=== PATIENT | male | born 1950 | race Caucasian/White ===

== ENCOUNTER 2023-12-31 13:46 | Inpatient (IN) | payer MEDICARE ==
[~2023-12-31] VITALS: Ht 195.6 cm; Wt 120.0 kg
[2023-12-31] MEDS ORDERED: ROSUVASTATIN CA10 MG PO (14:04)
[2023-12-31] MEDS ORDERED: METF500 PO (14:04)
[2023-12-31] MEDS ORDERED: OLME20 PO (14:04)
[2023-12-31] MEDS ORDERED: HYDCHL25 PO (14:05)
[2023-12-31] MEDS ORDERED: METO50ER PO (14:05)
[2023-12-31] MEDS ORDERED: Aspir 8181 MG PO (14:06)
[2023-12-31] MEDS ORDERED: THERA-D2000 UNIT PO (14:06)
[2023-12-31] MEDS ORDERED: Vitamin B Comple1 EA PO (14:06)
[2023-12-31] MEDS ORDERED: MULVITA PO (14:06)
[2023-12-31] MEDS ORDERED: COQ-10100 MG PO (14:07)
[2023-12-31] MEDS ORDERED: B-12500 MC2 PO (14:07)
[2023-12-31] MEDS ORDERED: HYDROmorphone HCl/Pf 1MG SYR IV ONE ×3 (14:25→16:20)
[2023-12-31] MEDS ORDERED: Ondansetron HCl 2 MG / ML 2ML Vial IV ONE (14:25)
[2023-12-31 17:25] LABS: BASOPHILS ABSOLUTE AUTO 0.04 K/mm3 (0.00-0.23); BASOPHILS PERCENT AUTO 0 % (0-2); EOSINOPHILS PERCENT AUTO 3 % (0-6); Hematocrit 46.5 % (37.0-53.0); Hemoglobin 15.6 g/dL (13.5-17.5); IMMATURE GRAN ABSOLUTE AUTO 0.11 K/mm3 (0.00-0.10); IMMATURE GRAN PERCENT AUTO 1 % (0-1); LYMPHOCYTES ABSOLUTE AUTO 2.44 K/mm3 (0.84-5.20); LYMPHOCYTES PERCENT AUTO 17 % (21-46); MONOCYTES ABSOLUTE AUTO 1.13 K/mm3 (0.16-1.47); MONOCYTES PERCENT AUTO 8 % (4-13); Mean Corpuscular HGB 31.1 pg (26.0-34.0); Mean Corpuscular HGB Conc 33.5 g/dL (31.5-36.5); Mean Corpuscular Volume 93 fL (80-100); Mean Platelet Volume 10.3 fL (9.1-12.4); NEUTROPHILS ABSOLUTE AUTO 10.34 K/mm3 (1.96-9.15); NEUTROPHILS PERCENT AUTO 71 % (41-73); Platelet Count 263 K/mm3 (150-400); RDW Coefficient Variation 12.7 % (11.7-14.2); RDW Standard Deviation 43.3 fL (35.1-46.3); Red Blood Cell Count 5.01 M/mm3 (4.30-5.90); White Blood Cell Count 14.56 K/mm3 (4.00-11.30)
[2023-12-31] MEDS ORDERED: Ondansetron HCl 2 MG / ML 2ML Vial IV PRN (17:35)
[2023-12-31] MEDS ORDERED: NS 1,000 ML IV SCH (17:35)
[2023-12-31 17:36] LABS: Albumin, Blood 4.2 g/dL (3.4-5.0); Albumin/Globulin Ratio 1.4 (0.8-1.8); Bilirubin, Total 0.8 mg/dL (0.1-1.0); Bun/Creatinine Ratio 16.7 (12.0-20.0); Calcium, Blood 9.4 mg/dL (8.5-10.1); Creatinine, Blood 0.84 mg/dL (0.60-1.20); Potassium, Blood 3.8 mmol/L (3.5-5.5); Total Protein, Blood 7.2 g/dL (6.4-8.2)
[2023-12-31] MEDS ORDERED: FentaNYL Citrate 50 MCG/ML 2 ML Injection IV PRN (17:40)
[2023-12-31] MEDS ORDERED: Labetalol HCL 5 MG/ML 4ML Injection (Single Dose) IV PRN (17:40)
[2023-12-31] MEDS ORDERED: Ketorolac Tromethamine 15mg Vial IV PRN (17:50)
[2023-12-31] MEDS ORDERED: Insulin Human Lispro 100 Units/ML 3ML Syringe SC SCH (18:00)
[2023-12-31 19:46] VITALS: BP 148/67
--- NOTE | 2023-12-31 19:50 | NUR ---
ARRIVAL TO UNIT PT ARRIVED TO UNIT VIA GURNEY FROM THE ER. PT TRANSFERRED TO BED WITH SLIDING SHEET. ALL EXTRA LINEN OUT FROM UNDER PT. PT LLE EXTERNALLY ROTATED, SLIGHT SWELLING TO L HIP. PULSES ARE STRONG AND CAP REFILL IS WNL. DENIES ANY N/T TO LE. AT BEDSIDE. PT AND ARE FROM [place] AND ARE JUST HERE ON VACATION. VSS. NO OTHER CONCERNS AT THIS TIME, CALL LIGHT WITHIN REACH
[2024-01-01] VITALS (15 sets, daily range): BP systolic 100–137; BP diastolic 53–82
--- NOTE | 2024-01-01 05:25 | NUR ---
SHIFT SUMMARY NO ACUTE CHANGES SINCE COMING TO THE FLOOR. PAIN MANAGED PER EMAR. PT NEEDED TO BE PUT ON 2L NC TO AINTAIN SATS ABOVE 92%. CONT BIOX ON. PT HAS BEEN NPO SINCE MD FOR SURGERY TODAY. VSS. NO OTHER CONCERNS AT THIS TIME, CALL LIGHT WITHIN REACH
[2024-01-01] MEDS ORDERED: Lactated Ringer's 1,000 ML IV SCH (08:40)
[2024-01-01] MEDS ORDERED: Bupivacaine 0.5% Inj 10 ML Vial ONE (08:42)
[2024-01-01] MEDS ORDERED: Losartan Potassium 50 MG Tab PO SCH (09:00)
[2024-01-01] MEDS ORDERED: Aspirin 81 MG Chew PO SCH (09:00)
[2024-01-01] MEDS ORDERED: Atorvastatin 40 MG Tab PO SCH (09:00)
[2024-01-01] MEDS ORDERED: Metoprolol Succinate 50 MG TABCR PO SCH (09:00)
[2024-01-01] MEDS ORDERED: FentaNYL Citrate 50 MCG/ML 2 ML Injection ONE (09:27)
[2024-01-01] MEDS ORDERED: propofoL 20 ML IV ONE (09:27)
[2024-01-01] MEDS ORDERED: CeFAZolin Sodium 3,000 MG in NS 100 ML IV SCH (09:30)
[2024-01-01] MEDS ORDERED: Dexamethasone Sod Phos 10 MG/ML 1ML VIAL ONE (10:17)
[2024-01-01] MEDS ORDERED: Ondansetron HCl 2 MG / ML 2ML Vial ONE (10:17)
[2024-01-01] MEDS ORDERED: OxyCODONE HCL 5 MG TAB PO PRN (12:30)
[2024-01-01] MEDS ORDERED: Insulin Human Lispro 100 Units/ML 3ML Syringe SC SCH (16:30)
--- NOTE | 2024-01-01 18:33 | NUR ---
SHIFT SUMMARY S/P L HIP PINNING, AQUACEL CDI, TEDS, PHYSICAL THERAPY EVAL'D, UP TO CHAIR T/O SHIFT, A&OX4, VSS/1LNC/BIOX/CBG CNI/TELE NSR 70 BPM, VOIDING/URINAL, PAIN MANAGED, SARAI PO, AMB 1 PP MIN ASSIST FWW/GB. WILL REPORT TO ONCOMING NOC NATALIE.
[2024-01-02 00:06] VITALS: BP 129/70
[2024-01-02 03:32] VITALS: BP 138/74
--- NOTE | 2024-01-02 05:00 | NUR ---
SHIFT SUMMARY POD 1 L HIP PINNING PT ABLE TO SLEEP T/O THE NIGHT. PAIN MANAGED PER EMAR. TOLERATING PO INTAKE. PT TRANSFERS WITH 1P SBA W/ FWW AND GB. AQUACEL TO L HIP IS C/D/I. PT ABLE TO WIGGLE TOES AND DENIES N/T. WEARING 1L NC DURING THE NIGHT TO MAINTAIN SATS ABOVE 92%. VSS. NO OTHER CONCERNS AT THIS TIME, CALL LIGHT WITHIN REACH
[2024-01-02 08:02] VITALS: BP 135/74
[2024-01-02 15:03] VITALS: BP 116/71
[2024-01-02 19:11] VITALS: BP 127/76
--- NOTE | 2024-01-02 19:39 | NUR ---
PT IS STABLE POST OP DAY #1 FOR LEFT HIP PINNING. PT UPO WITH 1 ASSIST TO AMBULATE AND SIT IN CHAIR. WORKED WELL WITH THERAPY. PT PAIN CONTROLLED WITH PRN OXYCODONE. PT HAD SHOWER THIS EVENING. AQUACEL DRESSINGS X3 CDI. ORAL CARE DONE. ASSISTS WITH CARE. TOLERATING DIET. VOIDING WELL WITH URINAL. TELE SR WITH PVC'S. BLOOD SUGARS STABLE. PLAN FOR DC TOMORROW TO [facility] AND TRAVEL BACK TO [place] AFTER FOLLOW UP WITH DR LUX NEXT WEEK.
[2024-01-03 03:28] VITALS: BP 121/62
--- NOTE | 2024-01-03 04:09 | NUR ---
SHIFT SUMMARY THIS RN ASSUMED CARE AT APPROX 1915. PATIENT ALERT AND ORIENTED X4. RECEPTIVE TO EDUCATION, COMMUNICATES NEEDS EFFECTIVELY. IS A ONE PERSON ASSIST WITH FWW, GB WITH MOBILITY. SHOWERED AT BEGINNING OF SHIFT. USES URINAL INDEPENDENTLY IN BED, INDEPENDENT WITH REPOSITIONING. POD 2 L HIP PINNING - DRESSING C/D/I. MANAGING PAIN PER EMAR WITH 10MG PO ROXICODONE. VSS. PER [employer], TELEMETRY SHOWING SINUS 70s. REMAINS ON ROOM AIR T/O NIGHT, SATs >90%. RR EVEN, UNLABORED. CALL LIGHT IN REACH. WILL CONTINUE TO MONITOR AND REPORT TO ONCOMING RN.
[2024-01-03 07:17] VITALS: BP 149/67
--- NOTE | 2024-01-03 12:40 | NUR ---
MESSAGE TO DR LUX ASKING FOR DVT PROPHYLAXIS Tx PER DR. MOHAN.
[2024-01-03] MEDS ORDERED: MIRALAX17 GM PO (13:15)
[2024-01-03] MEDS ORDERED: ELIQUIS2.5 MG PO (13:16)
[2024-01-03] MEDS ORDERED: Percocet 5-3251 EACH PO (13:16)
--- NOTE | 2024-01-03 15:10 | NUR ---
DISCHARGE/SHIFT SUMMARY: A&Ox4. PLEASANT AND COOPERATIVE WITH CARE. CALLS APPROPRIATELY AND IS ABLE TO ADVOCATE NEEDS EFFECTIVELY. AMBULATED HALLWAY WITH PT USING FWW. NO BOWEL MOVEMENT, THOUGH HE REPORTS THIS IS NORMAL FOR HIM. BOWEL PROTOCOL INITATED. TELE NORMAL SINUS RHYTHM @ 58. MEDICATED x2 PRN PAIN. IV REMOVED FROM LEFT AC; CATHETER INTACT. DISCHARGED TO COMFORT INN #107 WITH PLANS TO BE SEEN BY HOME HEALTH PRIOR TO FLYING BACK HOME TO [place]. PATIENT IN TOWN SEEING TERMINALLY ILL BROTHER; DISCUSSION REGARDING GUILT AND SADNESS AT NOT BEING ABLE TO SPEND TIME WITH HIS BROTHER, THIS WAS THE INTENDED REASON OF HIS VISIT. ENCOURAGED TO TALK ABOUT FEELINGS WITH SUPPORT SYSTEM. BLOOD SUGARS CONTROLLED; NO INSULIN COVERAGE REQUIRED TODAY. MED REC [facility] [address]. GIVEN HARD COPY FOR PAIN MEDICATION. PATIENT ESCORTED FROM FLOOR BY THIS RN WITH ALL BELONGINGS AND DISCHARGE PACKET @ 1400. TRANSPORTATION PROVIDED BY IN RENTAL VEHICLE.
== END 2024-01-03 15:07 | disposition home or self-care (01) | DRG 481 ==
LOC: ER 13:46 → SURS 17:32
PROVIDERS: Emergency Medicine; Orthopaedic Surgery; ADMIT Internal Medicine
PROC: 0QS704Z Reposition Left Upper Femur with Internal Fixation Device, Open Approach (ICD-10-PCS; principal; 2024-01-01 09:00)
DX: S72.002A Fracture of unspecified part of neck of left femur, initial encounter for closed fracture (principal); I47.20 Ventricular tachycardia, unspecified; I10 Essential (primary) hypertension; E78.5 Hyperlipidemia, unspecified; E11.9 Type 2 diabetes mellitus without complications; I25.10 Atherosclerotic heart disease of native coronary artery without angina pectoris; Z79.82 Long term (current) use of aspirin; Z79.84 Long term (current) use of oral hypoglycemic drugs; Z79.899 Other long term (current) drug therapy; Z88.0 Allergy status to penicillin; W01.0XXA Fall on same level from slipping, tripping and stumbling without subsequent striking against object, initial encounter
CPT/HCPCS: 73502; 73700; 80053; 82947; 85025; 93005; 93010; 94760; 94762; 96361; 96374; 96375; 96376; 97110; 97116; 97162; 97530; 99285-25; A9270; C1713; C1769; G0378; J0690; J1100; J1170; J1885; J2405; J2704; J3010; J7030; J7120